=== PATIENT | male | born 1980 | race Caucasian/White ===

== ENCOUNTER 2017-11-24 09:18 | Emergency (ER) | payer MEDICAID, OTHER ==
--- NOTE | 2017-11-24 11:37 | EDPHY ---
H & P Time Seen by Provider: 11/24/17 10:51 HPI/ROS: HPI Constipation. 37-year-old male by private vehicle. He presents to the emergency department with complaint of constipation. He states that he did have a satisfying bowel movement about 2 days ago. He reports that he has had no bowel movement the last 2 days and had an urge to defecate. He reports he tried a suppository at home as well as some laxatives and had a smaller bowel movement this morning. He still feels the need to defecate. He denies any significant abdominal pain. Denies any bloody stool. He has had issues with constipation in the past. ROS: Constitutional: No fever, no chills. No weakness. Respiratory: No cough. No shortness of breath. Cardiac: No chest pain, no palpitations. Gastrointestinal: No abdominal pain, no vomiting, no diarrhea. As above. Genitourinary: No hematuria. No dysuria or increased frequency with urination. As above. Musculoskeletal: No back pain. No neck pain. No myalgias or arthralgias. Neurological: No headache. No focal weakness or altered sensation. Past medical history: Herniated disc and lower back. He does take Vyvanse any flexor. Social history: Nonsmoker. No alcohol. Here by himself. Physical Exam: General Appearance: Alert, no distress. Large man. This patient is responding to questions appropriately and in full sentences. This patient appears well-hydrated and well-nourished. Eyes: Pupils equal and round no pallor or injection. No lid edema, erythema or injection. Gastrointestinal: Abdomen is soft and nontender, no masses, bowel sounds normal. No focal tenderness at McBurney's point. No Peña sign. Neurological: Motor sensory function is grossly intact. Cranial nerves are normal. Gait is normal. Skin: Warm and dry, no rashes. Extremities are symmetrical. All joints range without pain or impingement. Psychiatric: No agitation. No depression. Database: EKG: Imaging: Upright abdominal x-ray series: No obstructive pattern. No free air. Interpreted by me. Procedures: Emergency department course: Vital signs reviewed and are normal. I discussed the results of his x-rays with him. This patient is not obstructed. He has a benign abdomen. Plan will be to prescribe him a 1/2 prep of GoLYTELY to be taken for constipation. He declines an enema in the emergency department. He feels comfortable going home and I feel he is safe for discharge. Follow-up and return to emergency department precautions reviewed with him. All of his questions were answered. He was discharged home in good condition. Differential Diagnosis: The differential diagnosis on this patient includes but is not limited to constipation. Appendicitis, cholecystitis, volvulus, bowel obstruction unlikely. This represents a partial list of diagnoses considered. These considerations are based on history, physical exam, past history, reassessment and diagnostic testing. Smoking Status: Never smoked Constitutional: Initial Vital Signs Temperature (C) 36.5 C 11/24/17 09:22 Heart Rate 74 11/24/17 09:22 Respiratory Rate 16 11/24/17 09:22 Blood Pressure 129/90 H 11/24/17 09:22 O2 Sat (%) 93 11/24/17 09:22 O2 Delivery Mode Room Air Allergies/Adverse Reactions: No Known Allergies Allergy (Unverified 11/24/17 09:21) Home Medications: Medication Instructions Recorded Effexor Xr 11/24/17 Peg 3350/Na Sulf,Bicarb,Cl/KCl 4,000 ml PO ONCE #1 btl 11/24/17 [Golytely (RX)] VYVANSE 11/24/17 Departure - Departure Disposition: Home, Routine, Self-Care Clinical Impression: Constipation Condition: Good Instructions: High Fiber Diet (ED), Constipation (ED) Additional Instructions: Read and follow provided instructions. Follow-up with your primary care physician within the next several days for ongoing management of your constipation. Take medication as prescribed. Return to the emergency department for worsening abdominal pain, vomiting or other serious concerns. Referrals: NONE *PRIMARY CARE P,. [Primary Care Provider] - As per Instructions Prescriptions: Peg 3350/Na Sulf,Bicarb,Cl/KCl [Golytely (RX)] 4,000 ml PO ONCE #1 btl
[2017-11-24 12:05] VITALS: BP 138/85
== END 2017-11-24 12:03 | disposition home or self-care (01) ==
DX: K59.00 Constipation, unspecified (principal)